=== PATIENT | female | born 2005 | race Two or more races ===

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

== ENCOUNTER 2025-05-30 14:42 | Emergency (ER) | payer BC, SELFPAY ==
[2025-05-30 14:45] VITALS: BP 121/57; PULSE 52; RESP 20; TEMP 36.7; O2SAT 98; BMI 47.8
--- OUTSIDE RECORDS SUMMARY | 2025-05-30 14:48 | XMS_ITS | Clinical Summary ---
Author Organization [facility] Address [address] [place] [address] Care Team Providers Care Director Of Sales Name Role Phone Rosette Warner MD Primary Care Provider [phone] Allergies No known active allergies Medications MedicationSigDispense QuantityRefillsLast FilledStart DateEnd DateStatus omeprazole (PRILOSEC) [address] capsule Take 20 mg by mouth dailyActive ondansetron (ZOFRAN) 4 MG tablet Take by mouth every 8 hours as needed for nauseaActive VITAMIN C 250 MG tablet Take 250 mg by mouth05/07/2023ctive ferrous sulfate (FEROSUL) 325 (65 Fe) MG tablet Take 1 tablet once daily with orange juice or other citrus juice or fruit 05/07/2023ctive ESTARYLLA 0.25-35 MG-MCG tablet Take 1 tablet by mouth daily at 2 pm10/26/2022ctive ondansetron (ZOFRAN ODT) 4 MG ODT tab Take 1 tablet (4 mg) by mouth every 8 hours as needed for nausea 18 tablet 11/17/2023ctive Active Problems ProblemNoted DateDiagnosed DateChronic GERD09/15/2023Iron deficiency anemia 01/05/20238919Kyfpuffnhpd69/19/5798Iphcgfuwfvv24/12/2022Morbid bfwzcxu5703/12/2021 Social History Tobacco UseTypesPacks/DayYears UsedDateSmoking Tobacco: Never AssessedAdolescent EducationAnswerDate RecordedGetting School Help NeededNot on file02/28/2023 CommentsNoSex and Gender InformationValueDate RecordedSex Assigned at BirthNot on fileLegal PdfYwnhan32/28/2023 9:20 PM CSTGender IdentityNot on file Sexual OrientationNot on file Last Filed Vital Signs Vital SignReadingTime TakenCommentsBlood Qshoohek410/6206 9:00 AM CDT Sdmfh736111/17/2023 9:43 AM JURTbjfnvwhvjr63.6 ??C (97.8 ??F)11/17/2023 8:05 AM CDTRespiratory Ppju316111/17/2023 9:43 AM CDTOxygen Pgzklehpmu13%11/17/2023 9:43 AM CDTInhaled Oxygen Concentration--Khtqwh071.5 kg (259 lb)09/25/2023 8:50 PM HYPZycufb415.6 cm (5' 4)11/17/2023 8:05 AM CDTBody Mass Index44.4608 9:25 PM CDTBody Mass Index Bepbvcegcm19.76%09/25/2023 8:50 PM CDTGrowth Chart: [facility] (Girls, 2-20 Years) Plan of Treatment Health MaintenanceDue DateLast DoneCommentsADVANCE CARE FASWYIDC78/02/2006NNUAL REVIEW OF HM XQHVAC11 2005CHLAMYDIA TIQHVDMSV02/02/2006HIV SCREENING 2020MENINGITIS B VACCINE (1 of 2 - Standard)2021HEPATITIS C ODMRRGADO28/02/2024YEARLY PREVENTIVE VISIT, 03/11/2021HQ-2 (once per calendar year)2024OVID-19 VACCINE ( - season) 2025INFLUENZA VACCINE (#1)/09/2020, 05/28/2018, 05/21/2017, Additional history existsDTAP/TDAP/TD VACCINE (7 - Td or Tdap)03/11/2031 03/11/2021, 08/28/2010, 05/09/2009, Additional history existsZOSTER VACCINE (1 of 2)10/08/2055HEPATITIS B ZIDAUGATymhalebp18/23/2006, 03/16/2006, 2005HIB IYQDVAEKoatjtsle88/06/2008, 03/16/2006PNEUMOCOCCAL VACCINE: PEDIATRICS (0 to 5 YEARS) AND AT-RISK PATIENTS (6 to 49 YEARS)Vujmzenpw47/06/2008, 03/16/2006IPV HZXQJKNCxrmdzcjb75/23/2011, 01/12/2008, 05/30/2006, Additional history exists VARICELLA INUYMNFHnhgskaeo88/23/2011, 01/12/2008MENINGITIS VACCINECompleted 02/05/2023, 03/11/2021HPV WLPQCUXGongtapyl73/09/2024, 02/05/2023, 03/11/2021 Insurance * Guarantor: Eulogio PRIETO TypeRelation to PatientDate of BirthPhone Billing AddressPersonal/QsdjqoKxojke04/18/1985 [address] [facility] [place] [address] [facility] Address: [id number] [place] [phone] [facility] Address: [address] [place] [address] * Guarantor: Eulogio PRIETO TypeRelation to PatientDate of BirthPhone Billing AddressPersonal/ByznhxAcjsdu40/18/1985 [facility] [address] [facility] Address: [id number] [place] [phone] Care Teams Team MemberRelationshipSpecialtyStart DateEnd Date Rosette Warner MD [address] [place] [address] PCP - GeneralInternal Medicine - Vnetjoouhw57/3/23
--- OUTSIDE RECORDS SUMMARY | 2025-05-30 14:48 | XMS_ITS | Clinical Summary ---
Author Organization [employer] [facility] Address [address] [place] [address] Care Team Providers Care School Curriculum Developer Name Role Phone Rosette Warner MD Primary Care Provider [phone] Allergies No known active allergies Medications MedicationSigDispense QuantityRefillsLast FilledStart DateEnd DateStatus fluticasone propionate 220 mcg/Actuation inhaler Indications:Asthma in adult, moderate persistent, uncomplicated (HC)Inhale 1 Puff by mouth two times daily. 1 Each 5Active Ventolin HFA 90 mcg/actuation inhaler Indications:Asthma in adult, moderate persistent, uncomplicated (HC)Inhale 2 Puffs by mouth every 4 hours if needed for Wheezing. 1 Each 5Active Active Problems ProblemNoted DateDiagnosed DateAsthma in adult, moderate persistent, orhmdasiesrph09/02/2025Encounter for test, result vcmstnu7601/09/2024H. pylori ymgllcgoop09/26/2024 Overview (12/02/2023): Diagnosed on EGD 11/2023 ([facility]) Chronic GERD09/15/2023Iron deficiency vzcwmz7901/05/2023Microcytic anemia 09/24/20225972Mlnibrltois37/19/2023Irregular astigmatism, egmepuiba54/30/2023Myopia, ctuqibzev45/30/2807Shhytccpvod22/12/2022Morbid jemgzxw8703/12/2021 Resolved Problems ProblemNoted DateDiagnosed DateResolved DateBiliary colic/01/2023 Abdominal pain, etjrmuyrnt33/01/202305/01/20232635Csocwy34/01/202305/01/2023 Eqaxcskzkg53/01/202305/01/2023Need for COVID-19 ktapvsp14/ Encounters DateTypeDepartmentCare BasuRgluaseuwqh93/28/2025 11:25 AM CDTOffice Visit [facility] [address] [facility] [place] [address] Fadi Brambila, DO Concerns (Last period was around 01/18, slight bleeding around 03/01 - last sexually active 02/27 (hadbeen active for about 2 months with partner - was not using any form of contraception) /Took last test x2-3 days ago and it was negative /Had a positive test on 02/19 )04/04/2025Travelfrom Last 3 Months Immunizations ImmunizationAdministration DatesNext LcdVSoM4308/28/2010,05/09/2009,01/12/2008, 05/30/2006,03/16/2006HPV 9 (Gardasil 9)09/15/2023,02/05/2023,03/11/2021Hepatitis A (Peds)01/19/2013,08/28/2010Hepatitis B (Peds)05/30/2006,03/16/2006,2005 Hib Conjugate, Ovubbljlyhm36/06/2008,03/16/2006Inactivated Polio Vaccine 08/28/2010,01/12/2008,05/30/2006,03/16/2006Influenza A (H1N1), Inactivated 05/09/2009Influenza, JSF524/09/2020,05/28/2018Influenza, IIV4 (=>6mos) MDV 05/21/2017MENINGOCOCCAL VACCINE 2 VIAL 2MO-55YO (MENVEO)02/05/2023,03/11/2021MMR 08/28/2010,01/12/2008Pneumococcal conj 13-Valent (Prevnar 13)01/12/2008, 03/16/2006Tdap1Varicella Uhntfcr3708/28/2010,01/12/2008 Family History RelationNameStatusCommentsBrother 1AliveBrother 2AliveFatherAliveMotherAlive Social History Tobacco UseTypesPacks/DayYears UsedDateSmoking Tobacco: NeverSmokeless Tobacco: Never Tobacco Cessation:Counseling Given: Yes Alcohol UseStandard Drinks/WeekCommentsYes0 (1 standard drink = 0.6 oz pure alcohol)occPHQ-2AnswerDate RecordedPHQ-2 TOTAL ELWXI529Social ConnectionsAnswerDate RecordedDo you often feel lonely or isolated from those around you?lcohol UseAnswerDate RecordedHow often do you have a drink containing alcohol?How many drinks containing alcohol do you have on a typical day when you are drinking?How often do you have five or more drinks on one occasion?Financial Resource StrainAnswer Date RecordedDifficulty of Paying Living Higdnjqz480/01/2025Difficulty of Paying Living ExpensesNot on file10/06/2024Food InsecurityAnswerDate RecordedDo you worry your food will run out before you are able to buy more? Transportation NeedsAnswerDate RecordedDoes lack of transportation keep you from medical appointments?Does lack of transportation keep you from work, meetings or getting things that you need?Housing StabilityAnswerDate RecordedWhat is your housing situation today?UtilitiesAnswerDate RecordedDo you have trouble paying for utilities (for example, heat, electricity, water, phone)?CommentsNoSex and Gender InformationValueDate RecordedSex Assigned at BirthNot on fileLegal SexFemale 02/20/2017 2:17 PM CDTGender IdentityNot on fileSexual OrientationNot on file Obstetrics History GravidaParaTermPretermABIABSABEctopicMultipleLivingLive [id number] Last Filed Vital Signs Vital SignReadingTime TakenCommentsBlood Afwmdfbg785/8510 11:23 AM CDT Dbbyi345604/04/2025 11:23 AM AMWMxfvmvhldqm78.3 ??C (97.4 ??F)02/05/2024 1:33 PM CDTRespiratory Lqtc964902/05/2024 1:33 PM CDTOxygen Vfmgeqoyzp87%04/04/2025 11:23 AM CDTInhaled Oxygen Concentration--Zrdqiw086 kg (271 lb 1.6 oz)04/04/2025 11:23 AM UFHRstcoz032.5 cm (5' 2.8)2024 9:12 AM CDTBody Mass Index-- Plan of Treatment Health MaintenanceDue DateLast DoneCommentsPneumococcal series for age 6-49 (1 of 1 - PPSV23, PCV20, or PCV21)/11/2007, 03/16/2006Chlamydia for age 16-OVID-19 vaccine series ( - 2024- season)2025 Influenza Vaccine (#1)/09/2020, 05/28/2018, 05/21/2017BMI (ht and wt on same day) for age 18+Depression screening for age 12+ , 02/05/2023, 10/13/2022, Additional history existsWell Child Check for age 3-, 02/05/2023, 03/11/2021, Additional history existsTetanus cogqadp16Hepatitis B series for 19+ Xvnrrfmyk79/23/2006, 03/16/2006, 2005Meningococcal series for age 11-21 Hqkwhmnbv37/31/2023, 03/11/2021HPV series for age 9-18Gmgwqsspq39/09/2024, 02/05/2023, 03/11/2021Hepatitis C screening for age 18-02Hljamlrfg15/30/2024HIV for age 15-93Bkasjejyf62/02/2025, 02/05/2024 Procedures Procedure NamePriorityDate/TimeAssociated DiagnosisCommentsPREGNANCY URINE POCT Add On10/ 11:27 AM CDT Missed period URINALYSIS TPNKREQNDWYGXCK51/28/2025 11:27 AM CDT Missed period URINE WVDJJLDXjioifz69/28/2025 11:27 AM CDT Missed period URINALYSIS MACROSCOPIC - [facility] ONLY POC DIP (QUEST)Qbtahim0904/04/2025 11:27 AM CDT Missed period ANTI HIV 1/1Xoeiaxi70/02/2025 9:52 AM CDT Screening for HIV (human immunodeficiency virus) ANTI MYMOOQT2502/05/2024 2:21 PM CDT Possible exposure to STI GC CHLAMYDIA TRACH LQADMTOVA75/30/2024 2:10 PM CDT Possible exposure to STI from Last 3 Months or Most Recently Relevant to Health Maintenance Results * POCT Urinalysis Dipstick Only [[id number]] (04/04/2025 11:27 AM CDT)Component ValueRef RangeTest MethodAnalysis TimePerformed AtPathologist Signature SPECIFIC GRAVITY1.0251.001 - 1.8739004/04/2025 11:39 AM [facility] MGNNQRUQQCNYTIREHXJFKPRRKAUHH11/28/2025 11:39 AM [facility]ALTHGLUCOSENEGATIVENEGATIVE04/04/2025 11:39 AM [facility] RSUKIGFSZYKSBTQVNPZNTENOPBANG61/28/2025 11:39 AM [facility] HEALTHBILIRUBINNEGATIVENEGATIVE04/04/2025 11:39 AM [facility]ALTHOCCULT WSARKRHYWPJELSLWTCOVX55/28/2025 11:39 AM [facility] SRANCSOXWIDQKHJMEKBGAXLUQGPLS76/28/2025 11:39 AM [facility] CLINICPH6.05.0 - 8.010 11:39 AM [facility] HEALTHLEUKOCYTE VXAPXIBUMINNOSSDVNGGOFFK48/28/2025 11:39 AM CDT [facility]ENTERpecimen (Source)Anatomical Location / LateralityCollection Method / VolumeCollection TimeReceived TimeUrineURINE SPECIMEN / UnknownNon-Blood / Vmlclcz0604/04/2025 11:27 AM CDT1 11:32 AM CDT Narrative Authorizing ProviderResult TypeResult StatusAdei Shaqra DOURINEFinal Result Performing OrganizationAddressCity/State/ZIP CodePhone Number [employer] [facility] [address] [place] [address], [place] [phone] [facility] [address] [place] [address], [place] [phone] * (ABNORMAL) URINALYSIS MICROSCOPIC [40919.1] - STAT (04/04/2025 11:27 AM CDT) ComponentValueRef RangeTest MethodAnalysis TimePerformed AtPathologist VufnogpwiGFT3-73-6, None Seen /HPF04/04/2025 4:24 PM [facility]SM[facility] IWQOBWXLKLQXG1-37-8, 3-5, None Seen /HPF04/04/2025 4:24 PM [facility] LABORATORYBACTERIAFewNone Seen, Rare, Few Bacteria/HPF04/04/2025 4:24 PM [facility] EPITHELIAL CELLSModerate(A)None Seen, Few Epi/HPF04/04/2025 4:24 PM [facility] LABORATORYHYALINE CASTS0-20-2, 3-5 /LP04/04/2025 4:24 PM CDSMY[facility] LABORATORYSpecimen (Source) Anatomical Location / LateralityCollection Method / VolumeCollection Time Received TimeUrineURINE SPECIMEN / UnknownNon-Blood / Lavlrrk1704/04/2025 11:27 AM CDT1 11:32 AM CDT Narrative Authorizing ProviderResult TypeResult StatusAdei Shaqra DOURINEFinal Result Performing OrganizationAddressCity/State/ZIP CodePhone Number [facility] [address] [place] [address], [place] * POCT Urine (04/04/2025 11:27 AM CDT)ComponentValueRef RangeTest MethodAnalysis TimePerformed AtPathologist SignaturePOC HCG URINENEGATIVE VYJVNYSR66/28/2025 11:46 AM [facility] CLINICSpecimen (Source)Anatomical Location / LateralityCollection Method / VolumeCollection TimeReceived TimeUrineURINE SPECIMEN / UnknownNon-Blood / Gqdhncj7604/04/2025 11:27 AM CDT1 11:32 AM CDT Narrative Authorizing ProviderResult TypeResult StatusFadi Brambila DOURINEFinal Result Performing OrganizationAddressCity/State/ZIP CodePhone Number [employer] [place] [address] [place] [address], [place] [phone] [address], * (ABNORMAL) URINE CULTURE [06846.2] (04/04/2025 11:27 AM CDT)ComponentValueRef RangeTest MethodAnalysis TimePerformed AtPathologist SignatureCULTURERESULT(A) 04/07/2025 1:26 PM CDMETHODIST [facility] LABORATORYCULTURE 10,000-50,000 CFU/mL Enterococcus nbefyusl56/31/2025 1:26 PM CDMETHODIST [facility] YAXRMCUBRRWPGHNSF72,000-50,000 CFU/mL Proteus mirabilis 04/07/2025 1:26 PM [facility] LABORATORYCULTURE >100,000 CFU/mL Multiple organisms probable dhapzykoulrk34/31/2025 1:26 PM CDT [facility] LABORATORYSpecimen (Source)Anatomical Location / LateralityCollection Method / VolumeCollection TimeReceived Time UrineURINE SPECIMEN / UnknownNon-Blood / Jnzbawd9304/04/2025 11:27 AM CDT 04/04/2025 11:32 AM CDT Narrative [facility] - 04/07/2025 1:26 PM CDT Specimen appears contaminated. No further workup pending. Authorizing ProviderResult TypeResult StatusaFdi Brambila DOMICROBIOLOGYFinal ResultPerforming OrganizationAddressCity/State/ZIP CodePhone Number [facility] [address] [place] [address], * ANTI HIV 1/2 [81629.0] (2024 9:52 AM CDT)ComponentValueRef RangeTest MethodAnalysis TimePerformed AtPathologist SignatureHIV AG/AB, 4TH GEN DFV-ZOOPKAJXVXL-JQOHQCCDToknq Diagnostics-[facility]akes [facility] CentereComment: HIV-1 antigen and HIV-1/HIV-2 antibodies were not detected. There is no laboratory evidence of HIV infection. PLEASE NOTE: This information has been disclosed to you from records whose confidentiality may be protected by state law. ??If your state requires such protection, then the state law prohibits you from making any further disclosure of the information without the specific written consent of the person to whom it pertains, or as otherwise permitted by law. A general authorization for the release of medical or other information is NOT sufficient for this purpose. ?? For additional information please refer to http://education.[employer]/faq/AFV231 (This link is being provided for informational/ educational purposes only.) The performance of this assay has not been clinically validated in patients less than 2 years old. Specimen (Source)Anatomical Location / LateralityCollection Method / Volume Collection TimeReceived TimeBloodBLOOD SPECIMEN / Mjwvsqk3510/07/2024 9:52 AM CDT 2024 9:53 AM CDT Narrative Authorizing ProviderResult TypeResult StatusAdei Shaqra DOSEND OUTSFinal Result Performing OrganizationAddressCity/State/ZIP CodePhone Number [employer] [facility] [address] [place] [address], [facility] [address] [place] [address] * ANTI HCV (02/05/2024 2:21 PM CDT)ComponentValueRef RangeTest MethodAnalysis TimePerformed AtPathologist SignatureHEPATITIS C ANTIBODYNon-Reactive Non-Kxpqiwxe02/30/2024 9:21 PM CDMETHODIST [facility] Comment:Please note, per www.CDC.gov: If a patient is known to be at high risk of HCV infection, or is symptomatic, and the physician's suspicion of HCV infection is high, HCV RNA testing is often employed and is of diagnostic value, even after an initial negative anti-HCV test result.Specimen (Source) Anatomical Location / LateralityCollection Method / VolumeCollection Time Received TimeBloodBLOOD SPECIMEN / UnknownVenipuncture / Komalfs3302/05/2024 2:21 PM CDT02/05/2024 2:21 PM CDT Narrative Authorizing ProviderResult TypeResult StatusShelkajal Perez PASEND OUTSFinal ResultPerforming OrganizationAddressCity/State/ZIP CodePhone Number [facility] [address] [place] [address], * (ABNORMAL) Vaginal GC CHLAMYDIA TRACH PROBE (02/05/2024 2:10 PM CDT)Component ValueRef RangeTest MethodAnalysis TimePerformed AtPathologist Signature CHLAMYDIA PROBEPositive(A) 02/06/2024 2:45 AM CDSMYTH COUNTY COMM[facility] C[facility] LABORATORYN GONORRHOEAE PROBENegative 02/06/2024 2:45 AM CDMETHODIST [facility] LABORATORYSpecimen (Source)Anatomical Location / LateralityCollection Method / VolumeCollection TimeReceived TimeOtherVAGINAL SWAB / UnknownNon-Blood / Xkbhujy1802/05/2024 2:10 PM CDT02/05/2024 5:28 PM CDT Narrative Authorizing ProviderResult TypeResult StatusShelkajal Perez PAMICROBIOLOGY Final ResultPerforming OrganizationAddressCity/State/ZIP CodePhone Number [facility] [address] [place] [address], from Last 3 Months or Most Recently Relevant to Health Maintenance Insurance MemberSubscriberPlan / Payer (Effective 2023-Present)Name:Camille Fam Relation to Subscriber:SelfName:Camille Fam Payer ID:[id number] (NAIC) Group ID:[id number] Type:Not on file Address: [place] [id number] Advance Directives * Full Code (Latest Code Status on File) Date ActivatedDate InactivatedComments10/01/2022 9:06 AM10/01/2022 10:29 PM QuestionAnswerCommentsCode Status Discussion:* Unable to Assess Preferences, Provider to review later Care Teams Team MemberRelationshipSpecialtyStart DateEnd Date Rosette Warner MD [address] [place] [address] PCP - GeneralInternal Medicine10/13/22
== END 2025-05-30 16:03 | disposition left against medical advice (07) ==
LOC: ED 15:43
PROVIDERS: Emergency Provider Emergency Medicine Emergency Medical Services
DX: Z53.21 Procedure and treatment not carried out due to patient leaving prior to being seen by health care provider (principal)

== ENCOUNTER 2025-05-31 01:03 | Emergency (ER) | payer OTHER, SELFPAY ==
--- OUTSIDE RECORDS SUMMARY | 2025-05-31 01:05 | XMS_ITS | Clinical Summary ---
Author Organization [facility] Address [address] [place] [address] Care Team Providers Care Otc Clerk Name Role Phone Rosette Warner MD Primary Care Provider [phone] Allergies No known active allergies Medications MedicationSigDispense [...] ProblemNoted DateDiagnosed DateAsthma in adult, moderate persistent, jzmfqpzollqca73/02/2025Encounter for test, result ktwqlwx4001/09/2024H. pylori llfwsdgovq88/26/2024 Overview (12/02/2023): Diagnosed on EGD 11/2023 ([facility]) Chronic GERD09/15/2023Iron deficiency jhtmpi1201/05/2023Microcytic anemia 09/24/20224462Uljdnmdarym03/19/2023Irregular astigmatism, bzuvfvijf30/30/2023Myopia, zktelekuq32/30/7214Onyxbmomobd82/12/2022Morbid cdxpugm2603/12/2021 Resolved Problems ProblemNoted DateDiagnosed DateResolved DateBiliary colic/01/2023 Abdominal pain, fegiewsooh04/01/202305/01/20236339Iezbfu21/01/202305/01/2023 Ibksweyytv89/01/202305/01/2023Need for COVID-19 / Encounters DateTypeDepartmentCare FriiEdvnxddijga22/28/2025 11:25 AM CDTOffice Visit [facility] [address] [place] [address] Fadi Brambila, DO Concerns (Last period was around 01/18, slight bleeding around 03/01 - last sexually active 02/27 (hadbeen active for about 2 months with partner - was not using any form of contraception) /Took last test x2-3 days ago and it was negative /Had a positive test on 02/19 )04/04/2025Travelfrom Last 3 Months Immunizations ImmunizationAdministration DatesNext ZrqFBwL0808/28/2010,05/09/2009,01/12/2008, 05/30/2006,03/16/2006HPV 9 (Gardasil 9)09/15/2023,02/05/2023,03/11/2021Hepatitis A (Peds)01/19/2013,08/28/2010Hepatitis B (Peds)05/30/2006,03/16/2006,2005 Hib Conjugate, Jhbfgmhuvtr05/06/2008,03/16/2006Inactivated Polio Vaccine 08/28/2010,01/12/2008,05/30/2006,03/16/2006Influenza A (H1N1), Inactivated 05/09/2009Influenza, ETB135/09/2020,05/28/2018Influenza, IIV4 (=>6mos) MDV 05/21/2017MENINGOCOCCAL VACCINE 2 VIAL 2MO-55YO (MENVEO)02/05/2023,03/11/2021MMR 08/28/2010,01/12/2008Pneumococcal conj 13-Valent (Prevnar 13)01/12/2008, 03/16/2006Tdap1Varicella Fmdchwy5208/28/2010,01/12/2008 Family History RelationNameStatusCommentsBrother 1AliveBrother 2AliveFatherAliveMotherAlive Social History Tobacco UseTypesPacks/DayYears UsedDateSmoking Tobacco: NeverSmokeless Tobacco: Never Tobacco Cessation:Counseling Given: Yes Alcohol UseStandard Drinks/WeekCommentsYes0 (1 standard drink = 0.6 oz pure alcohol)occPHQ-2AnswerDate RecordedPHQ-2 TOTAL SFJVG201Social ConnectionsAnswerDate RecordedDo you often feel lonely or isolated from those around you?lcohol UseAnswerDate RecordedHow often do you have a drink containing alcohol?How many drinks containing alcohol do you have on a typical day when you are drinking?How often do you have five or more drinks on one occasion?Financial Resource StrainAnswer Date RecordedDifficulty of Paying Living Eycsojti509/01/2025Difficulty of Paying Living ExpensesNot on file10/06/2024Food InsecurityAnswerDate [...] fileSexual OrientationNot on file Obstetrics History GravidaParaTermPretermABIABSABEctopicMultipleLivingLive [id number] Last Filed Vital Signs Vital SignReadingTime TakenCommentsBlood Brfaeaga430/8510 11:23 AM CDT Ffkap657204/04/2025 11:23 AM BWUAbznepnddag80.3 ??C (97.4 ??F)02/05/2024 1:33 PM CDTRespiratory Cnon131502/05/2024 1:33 PM CDTOxygen Oyxwlapggv61%04/04/2025 11:23 AM CDTInhaled Oxygen Concentration--Fihskd324 kg (271 lb 1.6 oz)04/04/2025 11:23 AM HMEBltedc213.5 cm (5' 2.8)2024 9:12 AM CDTBody Mass [...] age 3-, 02/05/2023, 03/11/2021, Additional history existsTetanus jpxztzn19Hepatitis B series for 19+ Drrlyoujp77/23/2006, 03/16/2006, 2005Meningococcal series for age 11-21 Njfhsefya12/31/2023, 03/11/2021HPV series for age 9-89Fbqbqjmag37/09/2024, 02/05/2023, 03/11/2021Hepatitis C screening for age 18-22Lltpvnujo64/30/2024HIV for age 15-10Hgkrgxvkn63/02/2025, 02/05/2024 Procedures Procedure NamePriorityDate/TimeAssociated DiagnosisCommentsPREGNANCY URINE POCT Add On10/ 11:27 AM CDT Missed period URINALYSIS GUZHUGUMRPDUKNX48/28/2025 11:27 AM CDT Missed period URINE RKVIGRVLssizkj44/28/2025 11:27 AM CDT Missed period URINALYSIS MACROSCOPIC - [facility] ONLY POC DIP (QUEST)Lgnlbht4304/04/2025 11:27 AM CDT Missed period ANTI HIV 1/2Qecsydb14/02/2025 9:52 AM CDT Screening for HIV (human immunodeficiency virus) ANTI LKCYBTP9602/05/2024 2:21 PM CDT Possible exposure to STI GC CHLAMYDIA TRACH LUGXWZNVQ52/30/2024 2:10 PM CDT Possible exposure to STI from Last 3 Months or Most Recently Relevant to Health Maintenance Results * POCT Urinalysis Dipstick Only [ULP10611] (04/04/2025 11:27 AM CDT)Component ValueRef RangeTest MethodAnalysis TimePerformed AtPathologist Signature SPECIFIC GRAVITY1.0251.001 - 1.0249404/04/2025 11:39 AM [facility] DQJGQVHHGJKLOZMPHNRYOLCLKYNDF31/28/2025 11:39 AM [facility]GLUCOSENEGATIVENEGATIVE04/04/2025 11:39 AM [facility] HWIDKMQJFKVEBDBNWKHKRZMHACGJD61/28/2025 11:39 AM [facility]ALTHBILIRUBINNEGATIVENEGATIVE04/04/2025 11:39 AM [facility] GWSSXENOWSXBRBSCILFOS18/28/2025 11:39 AM [facility] USROGGXDKMGCSVMWMQWUJCWTOQQHY72/28/2025 11:39 AM [facility] CLINICPH6.05.0 - 8.010 11:39 AM [facility]ALTHLEUKOCYTE LEGFAADWFCNKBZBPGPEOFVAX31/28/2025 11:39 AM CDT [facility]pecimen (Source)Anatomical Location / LateralityCollection Method / VolumeCollection TimeReceived TimeUrineURINE SPECIMEN / UnknownNon-Blood / Nkpqdow0804/04/2025 11:27 AM CDT1 11:32 AM CDT Narrative Authorizing ProviderResult TypeResult StatusAdei Shaqra DOURINEFinal Result Performing OrganizationAddressCity/State/ZIP CodePhone Number [employer] [facility] [address] [place] [address], [place] [phone] [facility] [address] [place] [address], [place] [phone] * (ABNORMAL) URINALYSIS MICROSCOPIC [01169.1] - STAT (04/04/2025 11:27 AM CDT) ComponentValueRef RangeTest MethodAnalysis TimePerformed AtPathologist CgjjticdiSVL6-03-9, None Seen /HPF04/04/2025 4:24 PM [facility] HDRLRPUQPSGPI3-70-6, 3-5, None Seen /HPF04/04/2025 4:24 PM [facility]-CENTRAL LABORATORYBACTERIAFewNone Seen, Rare, Few Bacteria/HPF04/04/2025 4:24 PM [facility] LAB[facility] EPITHELIAL CELLSModerate(A)None Seen, Few Epi/HPF04/04/2025 4:24 PM [facility] LABORATORYHYALINE CASTS0-20-2, 3-5 /LP04/04/2025 4:24 PM [facility] LABORATORYSpecimen (Source) Anatomical Location / LateralityCollection Method / VolumeCollection Time Received TimeUrineURINE SPECIMEN / UnknownNon-Blood / Zjbxfih7704/04/2025 11:27 AM CDT1 11:32 AM CDT Narrative Authorizing ProviderResult TypeResult StatusAdei Shaqra DOURINEFinal Result Performing OrganizationAddressCity/State/ZIP CodePhone Number [facility] [address] [place] [address], [place] * POCT Urine (04/04/2025 11:27 AM CDT)ComponentValueRef RangeTest MethodAnalysis TimePerformed AtPathologist SignaturePOC HCG URINENEGATIVE TOAYIISE72/28/2025 11:46 AM [facility] CLINICSpecimen (Source)Anatomical Location / LateralityCollection Method / VolumeCollection TimeReceived TimeUrineURINE SPECIMEN / UnknownNon-Blood / Koodslo0604/04/2025 11:27 AM CDT1 11:32 AM CDT Narrative Authorizing ProviderResult TypeResult StatusFadi Brambila DOURINEFinal Result Performing OrganizationAddressCity/State/ZIP CodePhone Number [employer] [place] [address] [place] [address], [place] [phone] [address], * (ABNORMAL) URINE CULTURE [88690.2] (04/04/2025 11:27 AM CDT)ComponentValueRef RangeTest MethodAnalysis TimePerformed AtPathologist SignatureCULTURERESULT(A) 04/07/2025 1:26 PM CDNOR[facility]ERCENTRAL LABORATORYCULTURE 10,000-50,000 CFU/mL Enterococcus royhjdeo26/31/2025 1:26 PM CDNORTH [facility]ENTERCENTRAL AHDMETHHYJRCFQWFC87,000-50,000 CFU/mL Proteus mirabilis 04/07/2025 1:26 PM [facility] LABORATORYCULTURE >100,000 CFU/mL Multiple organisms probable eftpkydmwuvi81/31/2025 1:26 PM CDT [facility] LABORATORYSpecimen (Source)Anatomical Location / LateralityCollection Method / VolumeCollection TimeReceived Time UrineURINE SPECIMEN / UnknownNon-Blood / Wdhfqkr4104/04/2025 11:27 AM CDT 04/04/2025 11:32 AM CDT Narrative [facility] - 04/07/2025 1:26 PM CDT Specimen appears contaminated. No further workup pending. Authorizing ProviderResult TypeResult StatusFadi Brambila DOMICROBIOLOGYFinal ResultPerforming OrganizationAddressCity/State/ZIP CodePhone Number [facility] [address] [place] [address], * ANTI HIV 1/2 [26226.0] (2024 9:52 AM CDT)ComponentValueRef RangeTest MethodAnalysis TimePerformed AtPathologist SignatureHIV AG/AB, 4TH GEN TCE-UEFFWZWZZFF-KZYGEPAFUpdxf Diagnostics-[facility] CentereComment: HIV-1 antigen and HIV-1/HIV-2 antibodies were [...] ?? For additional information please refer to http://education.WheresTheBus/faq/HMN443 (This link is being provided for informational/ educational purposes only.) The performance of this assay has not been clinically validated in patients less than 2 years old. Specimen (Source)Anatomical Location / LateralityCollection Method / Volume Collection TimeReceived TimeBloodBLOOD SPECIMEN / Vrmhojc7110/07/2024 9:52 AM CDT 2024 9:53 AM CDT Narrative Authorizing ProviderResult TypeResult StatusAdei Shaqra DOSEND OUTSFinal Result Performing OrganizationAddressCity/State/ZIP CodePhone Number [employer] [facility] [address] [place] [address], oNoiseMap[facility] [address] [place] [address] * ANTI HCV (02/05/2024 2:21 PM CDT)ComponentValueRef RangeTest MethodAnalysis TimePerformed AtPathologist SignatureHEPATITIS C ANTIBODYNon-Reactive Non-Ejauhxcr95/30/2024 9:21 PM CDNORTH [facility]ISS[facility]AL LABORATORY Comment:Please note, per www.CDC.gov: If a [...] Time Received TimeBloodBLOOD SPECIMEN / UnknownVenipuncture / Gxvaocr4602/05/2024 2:21 PM CDT02/05/2024 2:21 PM CDT Narrative Authorizing ProviderResult TypeResult StatusShelkajal Perez PASEND OUTSFinal ResultPerforming OrganizationAddressCity/State/ZIP CodePhone Number [facility] LABOR[facility]ORY [address] [place] [address], * (ABNORMAL) Vaginal GC CHLAMYDIA TRACH PROBE (02/05/2024 2:10 PM CDT)Component ValueRef RangeTest MethodAnalysis TimePerformed AtPathologist Signature CHLAMYDIA PROBEPositive(A) 02/06/2024 2:45 AM [facility]- CENTRAL LABORATORYN GONORRHOEAE PROBENegative 02/06/2024 2:45 AM CDNORTH [facility]ISS[facility]ENTERCENTRAL LABORATORYSpecimen (Source)Anatomical Location / LateralityCollection Method / VolumeCollection TimeReceived TimeOtherVAGINAL SWAB / UnknownNon-Blood / Wndyctq8902/05/2024 2:10 PM CDT02/05/2024 5:28 PM CDT Narrative Authorizing ProviderResult TypeResult StatusShelkajal Perez PAMICROBIOLOGY Final ResultPerforming OrganizationAddressCity/State/ZIP CodePhone Number [facility] [address] [place] [address], from Last 3 Months or Most Recently Relevant to Health Maintenance Insurance MemberSubscriberPlan / Payer (Effective 2023-Present)Name:Camille Fam Relation to Subscriber:SelfName:Camille Fam Payer ID:[id number] (NAIC) Group ID:[id number] Type:Not on file Address: [place] [id number] Advance Directives * Full Code (Latest Code Status on File) Date ActivatedDate InactivatedComments10/01/2022 9:06 AM10/01/2022 10:29 PM QuestionAnswerCommentsCode Status Discussion:* Unable to Assess Preferences, Provider to review later Care Teams Team MemberRelationshipSpecialtyStart DateEnd Date Rosette Warner MD [address] [place] [address] PCP - GeneralInternal Medicine10/13/22
--- OUTSIDE RECORDS SUMMARY | 2025-05-31 01:05 | XMS_ITS | Clinical Summary ---
Author Organization [facility] Address [address] [place] [address] Care Team Providers Care Data Security Coordinator Name Role Phone Rosette Warner MD Primary Care Provider [phone] Allergies No known active allergies Medications MedicationSigDispense [...] Problems ProblemNoted DateDiagnosed DateChronic GERD09/15/2023Iron deficiency anemia 01/05/20238024Pmjuqwtebho70/19/2165Ahockypawdc66/12/2022Morbid pzpzguf3503/12/2021 Social History Tobacco UseTypesPacks/DayYears UsedDateSmoking Tobacco: Never AssessedAdolescent EducationAnswerDate RecordedGetting School Help NeededNot on file02/28/2023 CommentsNoSex and Gender InformationValueDate RecordedSex Assigned at BirthNot on fileLegal MblPcokun47/28/2023 9:20 PM CSTGender IdentityNot on file Sexual OrientationNot on file Last Filed Vital Signs Vital SignReadingTime TakenCommentsBlood Ictefiuw341/6206 9:00 AM CDT Jvvfw362611/17/2023 9:43 AM WSCFryhierodwd91.6 ??C (97.8 ??F)11/17/2023 8:05 AM CDTRespiratory Vsru094111/17/2023 9:43 AM CDTOxygen Qgpykwepgs67%11/17/2023 9:43 AM CDTInhaled Oxygen Concentration--Rdfiqx676.5 kg (259 lb)09/25/2023 8:50 PM XHRTglrgc531.6 cm (5' 4)11/17/2023 8:05 AM CDTBody Mass Index44.4608 9:25 PM CDTBody Mass Index Ilgsfkedor92.76%09/25/2023 8:50 PM CDTGrowth Chart: [facility] (Girls, 2-20 Years) Plan of Treatment Health MaintenanceDue DateLast DoneCommentsADVANCE CARE KRVTVYBR03/02/2006NNUAL REVIEW OF HM HMHTPH57 2005CHLAMYDIA BTJAOWFXT49/02/2006HIV SCREENING 2020MENINGITIS B VACCINE (1 of 2 - Standard)2021HEPATITIS C HYPPCXHCT87/02/2024YEARLY PREVENTIVE VISIT, 03/11/2021HQ-2 (once per calendar year)2024OVID-19 VACCINE ( - season) 2025INFLUENZA VACCINE (#1)/09/2020, 05/28/2018, 05/21/2017, Additional history existsDTAP/TDAP/TD VACCINE (7 - Td or Tdap)03/11/2031 03/11/2021, 08/28/2010, 05/09/2009, Additional history existsZOSTER VACCINE (1 of 2)10/08/2055HEPATITIS B ZVUBBSEEkxgborur26/23/2006, 03/16/2006, 2005HIB HXTZFLHDjpxgdiww92/06/2008, 03/16/2006PNEUMOCOCCAL VACCINE: PEDIATRICS (0 to 5 YEARS) AND AT-RISK PATIENTS (6 to 49 YEARS)Nwlxilusn28/06/2008, 03/16/2006IPV TDKRNZLCjztmgmja45/23/2011, 01/12/2008, 05/30/2006, Additional history exists VARICELLA ZZUVYMDAayecgagv35/23/2011, 01/12/2008MENINGITIS VACCINECompleted 02/05/2023, 03/11/2021HPV VZYTVWBGensjqiox14/09/2024, 02/05/2023, 03/11/2021 Insurance * Guarantor: Eulogio PRIETO TypeRelation to PatientDate of BirthPhone Billing AddressPersonal/YnngeiWauztn25/18/1985 [address] [facility] [address] [facility] [place] [address] [facility] Address: [id number] [place] [phone] [facility] Address: [address] [place] [address] * Guarantor: Eulogio PRIETO TypeRelation to PatientDate of BirthPhone Billing AddressPersonal/EriciwHhxyhp70/18/1985 [facility] [place] [address] [facility] Address: [id number] [place] [phone] Care Teams Team MemberRelationshipSpecialtyStart DateEnd Date Rosette Warner MD [address] [place] [address] PCP - GeneralInternal Medicine - Ncfwikpbna45/3/23
[2025-05-31 01:21] VITALS: BP 125/74; PULSE 95; RESP 18; TEMP 36.6; O2SAT 97; BMI 48.0
== END 2025-05-31 02:18 | disposition left against medical advice (07) ==
LOC: ED 01:51
DX: Z53.21 Procedure and treatment not carried out due to patient leaving prior to being seen by health care provider (principal)